=== PATIENT | female | born 1965 | race Caucasian/White ===

== ENCOUNTER 2024-12-25 17:49 | Emergency (ER) | payer BC ==
[2024-12-25] VITALS (9 sets, daily range): BP systolic 105–127; BP diastolic 62–85
[~2024-12-25] VITALS: Ht 170.2 cm; Wt 129.3 kg
[2024-12-25] MEDS ORDERED: methylPREDNISolone SODIUM SUCC 125 MG/2 ML SDV IV ONE (18:05)
[2024-12-25] MEDS ORDERED: FAMOTIDINE 10MG/ML 2ML SDV IV ONE (18:05)
[2024-12-25] MEDS ORDERED: DiphenhydrAMINE HCL 50 MG/ML SDV IV ONE (18:05)
[2024-12-25] MEDS ORDERED: EPIPEN 2-P0.3 MG/0.3 IM (19:24)
== END 2024-12-25 19:47 | disposition home or self-care (01) | DRG 607 ==
LOC: ED 17:49
DX: L50.0 Allergic urticaria (principal); I10 Essential (primary) hypertension; E11.9 Type 2 diabetes mellitus without complications; E78.5 Hyperlipidemia, unspecified
CPT/HCPCS: J1200